=== PATIENT | male | born 1990 | race African-American/Black ===

== ENCOUNTER 2020-01-25 01:05 | Emergency (ER) | payer OTHER ==
[~2020-01-25] VITALS: Ht 185.4 cm; Wt 68.0 kg
--- NOTE | 2020-01-25 01:16 | NUR ---
BIBS FOR L SHOULDER DISLOCATION DURING WRESTLING. PT REPORTED HE HAD L SHOULDER DISLOCATION 4 TIMES BEFORE. PT WAS PLACED ON A MONITOR. VSS. WILL CONT TO MONITOR
--- NOTE | 2020-01-25 01:20 | NUR ---
X RAY AT THE BED SIDE
[2020-01-25] MEDS ORDERED: ETOMIDATE 2 MG/ML VIAL ONE (01:21)
[2020-01-25] MEDS ORDERED: ETOMIDATE 2 MG/ML VIAL IV ONE (01:30)
--- NOTE | 2020-01-25 01:36 | NUR ---
PATIENT IS AWAKE AT THIS TIME. [id number]. ABLE TO ANSWER ALL QUESTIONS. NO RESPIRATORY DISTRESS. CHEST RISES EQUALLY. 02 SAT AT 100% ON ROOM AIR.
--- NOTE | 2020-01-25 01:38 | NUR ---
L SHOULDER REDUCTION UNDER SEDATION WAS DONE BY DR. FOSTER AT THE BED SIDE. PT TOLERATED THE PROCEDURE WELL. CURRENTLY AWAKE , ALERT AND RESPONSIVE. BREATHING EVENLY. SATTING 100% ON ROOM AIR. PT WILL REMAINE UNDER CLOSE SUPERVISION AND MONITORING FOR POST SEDATION COMPLICATIONS. NO RESPIRATORY DISTRESS NOTED AT THIS TIME.
[2020-01-25 02:02] VITALS: BP 130/78
--- NOTE | 2020-01-25 02:02 | NUR ---
Patient discharged to home in stable condition. Written and verbal after care instructions given. Patient verbalizes understanding of instruction.
--- NOTE | 2020-01-25 02:02 | NUR ---
Patient passes swallow evaluation test.
--- NOTE | 2020-01-25 02:02 | NUR ---
IV removed. Catheter intact and site benign. Pressure and 4x4 applied to site. No bleeding noted.
--- NOTE | 2020-01-25 02:02 | NUR ---
Patient is ambulatory with a steady gait.
== END 2020-01-25 02:03 | disposition home or self-care (01) ==
LOC: ER 01:11
DX: S43.085A Other dislocation of left shoulder joint, initial encounter (principal); X58.XXXA Exposure to other specified factors, initial encounter; Y93.72 Activity, wrestling; Y92.89 Other specified places as the place of occurrence of the external cause; Y99.8 Other external cause status
CPT/HCPCS: 23650; 73020; 73030; 99152; 99285; J3490; J7030; G0500